=== PATIENT | female | born 1990 | race Caucasian/White ===

== ENCOUNTER 2020-10-16 22:35 | Emergency (ER) | payer SELFPAY ==
[~2020-10-16] VITALS: Ht 162.6 cm; Wt 95.5 kg
[~2020-10-16 22:35] MED LIST: MOTRIN 600600 MG/TAB PO; TYLENOL 325MG325 MG PO
[2020-10-16 22:40] VITALS: BP 151/93; PULSE 96; TEMP 98
== END 2020-10-17 01:20 | disposition left against medical advice (07) ==
LOC: COL.ER 22:35
DX: S52.502A Unspecified fracture of the lower end of left radius, initial encounter for closed fracture (principal); Z88.6 Allergy status to analgesic agent; W01.0XXA Fall on same level from slipping, tripping and stumbling without subsequent striking against object, initial encounter; Y92.810 Car as the place of occurrence of the external cause
CPT/HCPCS: J2060; J3010

== ENCOUNTER 2020-12-21 10:00 | Outpatient (RCR) | payer SELFPAY | END 2021-01-21 11:29 | LOC: WSOT 10:00 | DX: S52.509A Unspecified fracture of the lower end of unspecified radius, initial encounter for closed fracture (principal) ==

== ENCOUNTER 2021-03-10 09:00 | Outpatient (RCR) | payer SELFPAY | END 2021-04-23 14:52 | disposition home or self-care (01) | LOC: WSOT 09:00 | DX: S52.509A Unspecified fracture of the lower end of unspecified radius, initial encounter for closed fracture (principal) ==

== ENCOUNTER 2021-06-26 10:25 | Emergency (ER) | payer OTHER ==
[~2021-06-26] VITALS: Ht 162.6 cm; Wt 90.9 kg
[2021-06-26 11:42] LABS: COLLECTION METHOD CLEAN CATCH
[2021-06-26 11:46] LABS: BASO # 0.1 K/mm3 (0.0-0.2); BASO % 0.4 % (0.0-2.0); EOS # 0.1 K/mm3 (0.0-0.7); EOS % 0.8 % (0-4.0); GRAN # 7.9 K/mm3 (1.4-6.5); GRAN % 70.1 % (42.2-75.2); LYMPH # 2.5 K/mm3 (1.2-3.4); LYMPH % 22.2 % (20.0-51.0); MEAN CELL VOLUME 88 fl (80.0-100.0); MEAN CORPUSCULAR HEMOGLOBIN 28 pg (27.0-31.0); MEAN CORPUSCULAR HGB CONC 32 g/dl (33.0-37.0); MEAN PLATELET VOLUME 8.9 fl (7.4-10.4); MONO # 0.7 K/mm3 (0.1-0.6); MONO % 6.1 % (1.7-9.3); PLATELET COUNT 368 K/mm3 (130-400); RED BLOOD COUNT 4.67 M/mm3 (4.10-5.30); REDCELL DISTRIBUTION WIDTH-CV 14.1 % (11.5-14.5)
[2021-06-26 11:51] LABS: TRICYCLIC ANTIDEPRESS URINE NEGATIVE
[2021-06-26 12:03] LABS: ALANINE AMINOTRANSFERASE 42 U/L (0-55); ALBUMIN 3.8 gm/dL (3.5-5.0); ALCOHOL(ethanol),MEDICAL 48 mg/dL (0-10); ALKALINE PHOSPHATASE 97 U/L (40-150); ANION GAP 12 mmol/L (7-16); AST,SGOT 30 U/L (5-34); BILIRUBIN,TOTAL 0.4 mg/dL (0.2-1.2); BLOOD UREA NITROGEN 8 mg/dL (7-19); CALCIUM 9.1 mg/dL (8.4-10.2); CARBON DIOXIDE 24 mmol/L (22-29); CHLORIDE 107 mmol/L (98-107); CREATININE, serum 0.74 mg/dL (0.57-1.11); GLUCOSE 112 mg/dL (70-99); POTASSIUM 3.5 mmol/L (3.5-4.5); SODIUM 143 mmol/L (136-145)
[2021-06-26 12:05] LABS: ACETAMINOPHEN < 1.0 ug/mL (10-30); SALICYLATE < 5.0 mg/dL (15.0-30.0)
[2021-06-26 12:19] LABS: AMORPHOUS CRYSTAL Present /uL; PH 5 (5-8); URINE APPEARANCE Turbid; URINE BACTERIA Rare /hpf; URINE BILIRUBIN Negative (NEGATIVE); URINE BLOOD Negative (NEGATIVE); URINE COLOR Amber; URINE GLUCOSE Negative (NEGATIVE); URINE KETONE Negative (NEGATIVE); URINE LEUKOCYTE ESTERASE Negative (NEGATIVE); URINE NITRATE Negative (NEGATIVE); URINE PROTEIN(semi-quant) Negative (NEGATIVE); URINE RBC None Seen /hpf; URINE UROBILINOGEN Negative (NEGATIVE)
[2021-06-26 20:07] VITALS: BP 128/64; PULSE 78; TEMP 98.4
== END 2021-06-26 20:00 ==
LOC: COL.ER 10:25
PROVIDERS: Physician Assistant
DX: R45.851 Suicidal ideations (principal); Z20.822 Contact with and (suspected) exposure to COVID-19

== ENCOUNTER → 2023-10-19 | Outpatient (CLI) | payer BC ==
[2023-10-19 13:15] LABS: BASO # 0.1 K/mm3 (0.0-0.2); BASO % 0.5 % (0.0-2.0); EOS # 0.2 K/mm3 (0.0-0.7); EOS % 1.4 % (0.0-4.0); GRAN # 8.5 K/mm3 (1.4-6.5); GRAN % 75.5 % (42.2-75.2); HEMATOCRIT 41.1 % (37.0-47.0); HEMOGLOBIN 13.4 g/dl (12.5-16.0); LYMPH % 17.4 % (20.0-51.0); MEAN CELL VOLUME 85 fl (80.0-100.0); MEAN CORPUSCULAR HEMOGLOBIN 28 pg (27-31); MEAN CORPUSCULAR HGB CONC 33 g/dl (33.0-37.0); MEAN PLATELET VOLUME 8.8 fl (7.4-10.4); MONO # 0.6 K/mm3 (0.1-0.6); PLATELET COUNT 298 K/mm3 (130-400); RED BLOOD COUNT 4.81 M/mm3 (4.10-5.30); REDCELL DISTRIBUTION WIDTH-CV 12.7 % (11.5-14.5)
[2023-10-19 13:44] LABS: ALBUMIN 3.5 gm/dL (3.5-5.0); BILIRUBIN,TOTAL 0.4 mg/dL (0.2-1.2); CALCIUM 9.5 mg/dL (8.4-10.2); CREATININE, serum 0.74 mg/dL (0.57-1.11); POTASSIUM 4.2 mmol/L (3.5-4.5); TOTAL PROTEIN 6.8 gm/dL (6.2-8.1)
== END ==
LOC: COL.LAB 11:42
DX: F33.2 Major depressive disorder, recurrent severe without psychotic features (principal); F43.10 Post-traumatic stress disorder, unspecified; Z79.899 Other long term (current) drug therapy

== ENCOUNTER 2024-01-07 07:42 | Emergency (ER) | payer BC ==
[~2024-01-07] VITALS: Ht 162.6 cm; Wt 106.8 kg
[2024-01-07 08:13] VITALS: BP 128/88; TEMP 98.8
[2024-01-07] MEDS ORDERED: Home HYDROcodone/Acetaminophen 5/325 MG #4 TABS/PACK PO ONE (10:45)
[2024-01-07 11:07] VITALS: PULSE 90
== END 2024-01-07 11:07 | disposition home or self-care (01) ==
LOC: COL.ER 07:42
DX: S93.402A Sprain of unspecified ligament of left ankle, initial encounter (principal); W19.XXXA Unspecified fall, initial encounter

== ENCOUNTER → 2024-04-15 | Outpatient (CLI) | payer BC ==
[2024-04-15 11:07] LABS: BASO # 0.1 K/mm3 (0.0-0.2); BASO % 0.6 % (0.0-2.0); EOS # 0.1 K/mm3 (0.0-0.7); EOS % 0.6 % (0.0-4.0); GRAN # 10.6 K/mm3 (1.4-6.5); HEMATOCRIT 44.1 % (37.0-47.0); HEMOGLOBIN 14.4 g/dl (12.5-16.0); LYMPH # 2.7 K/mm3 (1.2-3.4); MEAN CELL VOLUME 84 fl (80.0-100.0); MEAN CORPUSCULAR HEMOGLOBIN 28 pg (27-31); MEAN CORPUSCULAR HGB CONC 33 g/dl (33.0-37.0); MONO # 0.8 K/mm3 (0.1-0.6); MONO % 5.5 % (1.7-9.3); PLATELET COUNT 367 K/mm3 (130-400); RED BLOOD COUNT 5.24 M/mm3 (4.10-5.30); REDCELL DISTRIBUTION WIDTH-CV 13.2 % (11.5-14.5)
[2024-04-15 11:30] LABS: ALBUMIN 4.1 g/dL (3.5-5.0); BILIRUBIN,TOTAL 0.7 mg/dL (0.2-1.2); CALCIUM 9.8 mg/dL (8.4-10.2); CHOLESTEROL RISK RATIO 4.5; CREATININE, serum 0.84 mg/dL (0.57-1.11); POTASSIUM 3.9 mEq/L (3.5-4.5); TOTAL PROTEIN 7.6 g/dl (6.2-8.1)
[2024-04-15 11:50] LABS: PROLACTIN 3.1 ng/mL (5.18-26.53)
== END ==
LOC: COL.LAB 10:05
PROVIDERS: Nurse Practitioner Psychiatric/Mental Health
DX: F33.2 Major depressive disorder, recurrent severe without psychotic features (principal)